=== PATIENT | male | born 1965 | race Caucasian/White ===

== ENCOUNTER 2016-06-24 06:09 | Inpatient (IN) ==
[2016-06-24] MEDS ORDERED: Albuterol 2.5 MG/3 ML NEBULIZER ONE (06:50)
[2016-06-24] MEDS ORDERED: *HR* Heparin 5,000 UNIT/ML VIAL ONE ×2 (06:52→10:50)
[2016-06-24] MEDS ORDERED: Heparin 1,000 UNITS/500 mL NS 500 ML ONE ×2 (06:52→06:55)
[2016-06-24] MEDS ORDERED: Ondansetron 4 MG/2 ML VIAL ONE (06:52)
[2016-06-24] MEDS ORDERED: *HR* Rocuronium Bromide 50 MG/5 ML VIAL ONE (06:52)
[2016-06-24] MEDS ORDERED: Lidocaine -MPF 2% 2 ML VIAL ONE ×2 (06:52→07:53)
[2016-06-24] MEDS ORDERED: *HR* Phenylephrine 10 MG/ML VIAL ONE (06:52)
[2016-06-24] MEDS ORDERED: *HR* FentaNYL (PF) 100 MCG/2 ML VIAL ONE (06:55)
[2016-06-24] MEDS ORDERED: *HR* Midazolam HCl 5 MG/5 ML VIAL IVP ONE (06:55)
[2016-06-24] MEDS ORDERED: *HR* Propofol 200 MG/20 ML VIAL IVP ONE (06:56)
[2016-06-24] MEDS ORDERED: CeFAZolin Pre 2,000 MG/100 ML 2,000 MG/100 ML BAG IVPB ONE (07:06)
--- NOTE | 2016-06-24 07:09 | Anesthesia Evaluation PreOp ---
Date of Encounter: 06/24/16 Time of Encounter: 07:07 - Past History Planned Operation: left fem-pop BPG Cardiac History: Denies any Significant Hx, Other (newly diagnosed PAD) Pulmonary History: Denies Any Significant HX, Smoker, Pack/yr (1 ppd x 30yrs) STOCK CLIPPER History: Denies Any Significant HX Other Medical History: Denies Any Significant HX Anesthesia History: No Prior Anesthetic Complications (no surgical history) Alcohol Use: occasionally Drug use: none Medications and Allergies Aspirin 81 mg PO DAILY #21 tab.chew 06/01/16 [Rx] Clopidogrel Bisulfate [Plavix] 75 mg PO DAILY #30 tablet 06/13/16 [Rx] HYDROcodone/Acet 5/325 mg [Morgan 5-325 mg] 1 tab PO Q6H PRN 06/13/16 [History] Allergies No Known Allergies Allergy (Verified 06/13/16 10:30) - Meds/Allergy Pre-op Review Medications Reviewed: Yes Allergies Reviewed: Yes Beta Blockers on Current Med List: No Anesthesia Results - Labs Laboratory Tests 06/01/16 06/01/16 17:21 17:21 Hgb 19.9 H Hct 56.6 H Plt Count 266 Sodium 137 Potassium 4.4 BUN 16 Creatinine 0.90 - Imaging EKG: report reviewed (sinus lawson) Chest x-ray: report reviewed (no active disease) Anesthesia Exam Selected Entries 06/24/16 06:24 Temperature 97.9 F Pulse Rate 82 Respiratory Rate 18 Blood Pressure 162/94 O2 Sat by Pulse Oximetry 99 Height: 1.75m Weight: 66.7kg NPO (# of Hours): 8 Pain Scale: 0 Pain Scale Used: Numeric (1 - 10) - HEENT Pupil (Motor): EOMI Mallampati: II Teeth: Normal Oral Opening: Greater than 3 - STOCK CLIPPER LOC: Oriented STOCK CLIPPER Motor: Normal RUE, Normal LUE, Normal RLE, Normal LLE, Normal Face STOCK CLIPPER Sensory: Normal: RUE, LUE, RLE, LLE, Face - Cardiac Rhythm: Regular Murmur: None - Pulmonary Breath Sounds: bilateral Clear Respiratory Effort: Symmetrical Anesthesia Assess/Plan ASA Score: 2 Modified [place] Scale for Level of Consciousness: Cooperative, oriented, and tranquil Anesthetic Plan: General Autologous Blood: No Monitoring Plan: Standard Monitors, A-Line Recovery Plan: PACU (Discussed risks of GA and a-line. Questions answered. Aware there is a possibility of need for blood products and ICU stay. Agrees to proceed.)
[2016-06-24] MEDS: Ringers Solution, Lactated 1,000 ML IVC SCH ×2 (07:16→09:44)
[2016-06-24] MEDS ORDERED: Heparin 1,000 UNITS/500 mL NS 1,000 ML ONE (07:18)
--- NOTE | 2016-06-24 07:26 | History & Physical Report ---
Date of Encounter: 06/24/16 Time of Encounter: 07:20 24 Hour HP Update - Instructions Instructions: If the History and Physical is less than 30 days old and was completed prior to A.M. admission and or procedure and has NOT been updated on calendar day of procedure please complete this update prior to performing procedure. - Update Patient reports changes in Medical Condition: No Changes in assessment/condition: No Changes in Medication: No Preop tests/diagnostics Reviewed: Yes Surgery Remains Indicated: Yes Consent for Planned Operative Procedure(s) Verified: Yes - Pre-Operative Checklist Preoperative Checklist Indicated: Yes Prophylactic Antibiotic Ordered: Yes Home Medications Include Beta Demond: No Beta Demond Taken Today (Day of Surgery): No Beta Demond Taken Yesterday (Day Prior to Surgery): No Is VTE Prophylaxis Indicated?: Yes
[2016-06-24] MEDS ORDERED: *HR* Metoprolol 5 MG/5 ML VIAL IVP ONE (08:32)
--- NOTE | 2016-06-24 09:57 | Anesthesia Procedures ---
Date of Encounter: 06/24/16 Time of Encounter: 08:00 Procedures: Anesthesia - Arterial Line Consent obtained: written consent Time out performed: Yes Sedation: Versed (mg): 3 Sedation: Fentanyl (mcg): 100 Supplemental Oxygen via Nasal Cannula (L/min): 2 Local Anesthetic: Lidocaine 1% Amount of Anesthetic used (mls): 1 Size (Gauge): 20 Length (inches): 1 3/4 Technique Used: sterile prep, guide wire technique, direct puncture technique Post-Procedure: line taped into place, dry sterile dressing placed Patient tolerated procedure: well, no complications Complications: none Site: Radial L (palced easily)
[2016-06-24] MEDS ORDERED: *HR* Morphine 10 MG/ML VIAL ONE (10:49)
--- NOTE | 2016-06-24 12:16 | Operative Note ---
Date of procedure: 06/24/16 Pre-op diagnosis: pad/claudication Post-op diagnosis: same Procedure: left femoral-AK popliteal bypass with reversed greater saphenous vein left AK popliteal endarterectomy with bovine pericardial patch angioplasty Complications: none Anesthesia: GETA Surgeon: Josemanuel Joseph Co-Surgeon: Ant Benavidez Estimated blood loss (cc): 200 Specimen: none Condition: stable Disposition: PACU Procedure in Detail: History Shivam Orozco is a 51-year-old white male was recently seen in the vascular surgery clinic for severe left lower extremity claudication and toe pain. He had an abnormal physical exam with no palpable popliteal or ankle pulses and diminished femoral pulses. He went on to have an angiogram last week which demonstrated bilateral iliac artery disease and a left superficial femoral artery JOURNEYMAN WELDER. The iliac lesions were able to be treated successfully with stent angioplasty. The left superficial femoral JOURNEYMAN WELDER was not able to be treated and he now comes to the operating room for vascular reconstruction. Procedure After informed consent was obtained patient was taken from the holding area to the operating room. General endotracheal anesthesia was established under arterial line pressure monitoring. The abdomen groin and left lower extremity was sterilely prepped and draped. A 2 team surgical approach was utilized for this procedure due to the nature of the disease as well as the goal to decrease intraoperative blood loss and anesthetic time. Also promoted the complex intraoperative decision-making. Incisions were made at the vxhau-zgi-nbsn popliteal artery and at the femoral level. Dissection was carried down to reveal his vessels. Common femoral artery was soft and had an excellent pulse. The above-knee popliteal and at the knee popliteal artery was diseased and there is no palpable pulse. The antrum had demonstrated reconstitution of the popliteal artery just above the knee joint. There was also an anatomic abnormality with a very high bifurcation of the popliteal artery into a posterior tibial branch and into a common anterior tibial peroneal artery branch. The goal was to perform the distal anastomosis proximal to this bifurcation so all 3 tibial vessels would receive pulsatile flow directly. After the arterial exposure was accomplished attention was directed to the greater saphenous vein. This was then dissected along the medial aspect of the thigh through interrupted incisions. The vein was found to be soft and usable and appropriate in caliber and quality. The vein was divided distally and gently irrigated. It distended to an appropriate size and it was completely harvested. A subsartorial tunnel was then created. Heparin was administered. The proximal anastomosis was performed first in end to side fashion. The vein was configured in a reverse configuration due to the size. 6- 0 Prolene suture was used for this end-to-side anastomosis to the common femoral artery. The vein was then checked and passed through the tunnel. The popliteal artery was opened. This vessel as expected demonstrated occlusion in its proximal portion. There was some retrograde flow distally. This was a very low bmhtq-jae-rgxm popliteal artery dissection as mentioned above. An endarterectomy was necessary. Using an elevator the occlusive plaque was lifted and a formal endarterectomy was performed of the inbjd-ild-opgu popliteal artery. This allowed for a normal base with which to work. Due to the length of the endarterectomy a bovine patch into plasty was necessary. This was sewn in position using 2 6-0 Prolene sutures. The with this done an arteriotomy was made over the patch. The vein was then fashioned in end to side figuration to the patch using 6-0 Prolene. After appropriate backbleeding and flushing the graft was opened and pulsatile flow was restored to the left calf. Excellent Doppler signals were identified at the posterior tibial and anterior tibial arteries at the dorsalis pedis level. The incisions were then irrigated and hemostasis achieved. Wounds were closed in layers using absorbable suture. Dry sterile dressings were applied. Estimated blood loss is 200 mL. The patient was extubated in the operating room and taken to the recovery room in stable condition. There were no intraoperative complications.
[2016-06-24] MEDS ORDERED: *HR* Labetalol 100 MG/20 ML MDV IVP PRN (12:25)
[2016-06-24] MEDS ORDERED: *HR* Promethazine 25 MG/ML VIAL IVP PRN (12:25)
[2016-06-24] MEDS ORDERED: *HR* Meperidine 25 MG/ML SYRINGE IVP PRN (12:25)
[2016-06-24] MEDS ORDERED: *HR* Morphine 2 MG/ML SYRINGE ONE (12:26)
[2016-06-24] MEDS: *HR* Morphine 2 MG/ML SYRINGE IVP PRN ×5 (12:29→13:00)
[2016-06-24] MEDS ORDERED: Ringers Solution, Lactated 1,000 ML IVC SCH (12:30)
[2016-06-24] MEDS ORDERED: Acetaminophen IV 1,000 MG/100 ML INFUS..BTL IVPB ONE (13:05)
[2016-06-24] MEDS ORDERED: *HR* HYDROmorphone (PF) 1 MG/ML SYRINGE IVP PRN (13:05)
[2016-06-24] MEDS ORDERED: *HR* HYDROmorphone (PF) 1 MG/ML SYRINGE ONE (13:09)
--- NOTE | 2016-06-24 13:23 | Anesthesia Evaluation Post Op ---
Date of Encounter: 06/24/16 Time of Encounter: 13:25 - Vital Signs Vital Signs: Vital Signs/O2 Sat/Glucose, Most Current Temp Pulse Resp BP Pulse Ox 06/24/16 13:19 97.7 F 80 18 140/71 97 06/24/16 13:09 83 18 139/72 98 06/24/16 12:59 85 18 138/71 97 06/24/16 12:49 97.7 F 84 18 132/70 96 06/24/16 12:39 96 18 144/75 96 06/24/16 12:29 98 18 154/85 95 06/24/16 12:19 98.4 F 100 18 164/113 97 - Lungs Lungs: Clear Ascult./Percussion - Airway Airway: Non-obstructed - Cardiovascular Regular Rate - Mental Status Mental Status: Alert & Oriented, Answers Appropriately - Pain Pain Scale: 1 - Nausea Vomiting Nausea Vomiting: Not Present - Hydration Hydration: NPO - Discharge PostOp Status: Transfer Patient to floor
[2016-06-24] MEDS ORDERED: *HR* Morphine 2 MG/ML SYRINGE IVP PRN ×2 (14:49)
[2016-06-24] MEDS ORDERED: Ondansetron 4 MG/2 ML VIAL IVP PRN (14:49)
[2016-06-24] MEDS ORDERED: *HR* Labetalol 20 MG/4 ML SYRINGE IVP PRN (14:49)
[2016-06-24] MEDS ORDERED: Naloxone 0.4 MG/ML INJ IVP PRN (14:49)
[2016-06-24] MEDS: *HR* HYDROcodone/Acet 5/325 mg TABLET PO PRN ×2 (15:43→23:59)
[2016-06-24] MEDS ORDERED: Nicotine 2 MG GUM BC PRN (16:31)
[2016-06-24] MEDS: Nicotine 14 MG PATCH.TD24 TD SCH (17:00)
[2016-06-24] MEDS: ceFAZolin 2,000 MG in D5% in Water 100 ML IVPB SCH (17:00)
[2016-06-24] MEDS: *HR* Metoprolol 5 MG/5 ML VIAL IVP SCH (17:00)
[2016-06-25 05:23] LABS: Basophils # 0.1 K/mcL (0.0-0.2); Basophils % 0.7 %; Eosinophils # 0.2 K/mcL (0.0-0.6); Eosinophils % 1.3 %; Hematocrit 36.6 % (37.5-50.1); Hemoglobin 12.8 g/dL (12.9-16.9); Immature Granulocytes % 0.4 % (0-4); Lymphocytes # 2.7 K/mcL (0.6-4.6); Lymphocytes % 21.5 %; Mean Corpuscular Hemoglobin 31.8 pg (28.0-33.3); Mean Corpuscular Volume 90.8 fL (83.0-100.0); Mean Platelet Volume 9.3 fL (9.4-12.4); Monocytes # 1.4 K/mcL (0.0-1.3); Monocytes % 10.9 %; Neutrophils # 8.3 K/mcL (1.6-8.9); Platelet Count 265 K/mcL (140-400); Red Blood Count 4.03 M/mcL (4.19-5.50); Segmented Neutrophils % 65.2 %
[2016-06-25] MEDS: *HR* HYDROcodone/Acet 5/325 mg TABLET PO PRN ×3 (05:41→16:58)
[2016-06-25 05:43] LABS: BUN/Creatinine Ratio 16 (6-26); Blood Urea Nitrogen 11 mg/dL (8-26); Calcium 8.2 mg/dL (8.6-10.8); Carbon Dioxide 24 mEq/L (19-29); Chloride 102 mEq/L (98-109); Glucose 106 mg/dL (70-99); Osmolality,Calculated 280 (280-300); Sodium 135 mEq/L (136-145); eGFR For African Americans > 60 (> 60); eGFR For Non-African Americans > 60 (> 60)
[2016-06-25] MEDS: *HR* Metoprolol 5 MG/5 ML VIAL IVP SCH ×3 (05:46→12:25)
--- NOTE | 2016-06-25 06:54 | Operative Note ---
Date of procedure: 06/25/16 Pre-op diagnosis: Peripheral vascular disease with disabling claudication Post-op diagnosis: same Procedure: 1. Left femoral to popliteal artery bypass with reversed left greater saphenous vein. 2. Left popliteal artery endartectomy with bovine pericardial patch angioplasty. Complications: None Anesthesia: GETA Surgeon: Ant Benavidez Co-Surgeon: Josemanuel Joseph Estimated blood loss (cc): 200 Specimen: None Condition: stable Disposition: PACU Procedure in Detail: Indications: The patient is a 51 year old male with a history of tobacco abuse who presented to clinic with disabling claudication. He was found to have significant peripheral vascular disease including a left superficial femoral artery occlusion with at the knee reconstitution. He was also found to have significant iliac disease. His iliac disease was treated with stents. However , his superficial femoral artery occlusion could not be crossed with a wire. Bypass was recommended for symptomatic relief. Procedure: The patient was identified in the preoperative area. The risks, benefits, and alternatives of the procedure were discussed. All questions were answered. The patient was taken to the operating room and placed in supine position on the operating room table. After the induction of general endotracheal anesthesia, he was cleaned and draped in normal sterile fashion. A two surgeon approach was utilized for this procedure in order to minimize anesthetic time and the risks for complications due to the patients comorbid conditions. In addition, a two surgeon approach was used for intraoperative decision making. An oblique incision was made over the left groin sharply. Hemostasis was obtained with electrocautery. Through a process of blunt, sharp, and electrocautery dissection, the left femoral vessels were dissected circumferentially and surrounded with vessel loops. A longitudinal incision was made on the left medial distal thigh sharply. Hemostasis was obtained with electrocautery. Through a process of blunt, sharp, and electrocautery dissection, the left above-knee popliteal artery was dissected proximally and distally and surrounded with vessel loops. The vessel was noted to be pulseless rigid due to the presence of calcified plaque Multiple skin incisions were made along the thigh between the two incisions along the saphenous vein. The saphenous vein was completely mobilized with blunt, sharp, and electrocautery dissection. The side branches were clamped, divided, tied off with 3-0 and 4-0 silk sutures. Distally, the vein was mobilized in the calf, clamped, divided, tied off with silk suture ligature and then further completely mobilized through the incisions. The vein was flushed and noted to be adequate in size and consistency for bypass. A tunnel was created between the femoral and popliteal artery incisions. The vein was reversed. Tension was applied to the femoral vessel loops. An arteriotomy was made in the common femoral artery and the vein graft was cut to fit the defect. The graft was anastamosed with a running 6-0 Prolene. After completing the closure, the vessels were reperfused and pulsatile flow was noted through the vein. The vein was marked without torsion and then it was tunneled between the two incisions. After tunneling, the vein was unclamped and was noted to have strong pulsatile flow once again. The atraumatic clamp was then reapplied to the vein. The popliteal vessels were occluded and a longitudinal arteriotomy was made in the popliteal artery. Significant partially occlusive calcified plaque was identified. The decision was made to perform an extensive endarterectomy in order to provide unobstructed outflow through the vein bypass graft. Using a freer, an long endarterectomy was then performed. The endpoint was inspected and no elevated flaps were noted. A bovine pericardial patch was then cut to fit the arterial defect and sutured in place with a running 6-0 Prolene. A longitudinal incision was then made in the patch. The distal end of the graft was cut to fit the incision and then sutured in place with a running 6-0 Prolene,. The distal arterial anastomosis was completed and prior to completing the closure, the popliteal vessels were flushed and reoccluded. Heparinized saline was infused into the lumen. The anastamosis was tied and then flow was restored. Polyphasic signals were noted distal to the distal anastomosis as well as at the posterior tibial artery. Wounds were irrigated with antibiotic-containing saline. Thrombin and gelfoam were used to aid in hemostasis. Meticulous hemostasis was obtained throughout the wound with electrocautery. Wounds were reapproximated with layers of 2-0 and 3-0 Vicryl. Skin was reapproximated with 4-0 Vicryl. Sterile dressings were applied. The patient was then extubated and taken to recovery room in stable condition.
[2016-06-25] MEDS: ceFAZolin 2,000 MG in D5% in Water 100 ML IVPB SCH ×2 (08:00)
[2016-06-25] MEDS: Nicotine 14 MG PATCH.TD24 TD SCH (08:18)
--- NOTE | 2016-06-25 08:37 | Discharge Summary ---
Date of Encounter: 06/25/16 Time of Encounter: 16:59 - Discharge Diagnosis (1) Tobacco abuse Priority: Secondary Status: Chronic Comments: Chronic tobacco use. Patient has been given counseling in regards to tobacco cessation. The patient has reduced his tobacco consumption since I saw him in the clinic but is not yet achieved 100% cessation. (2) PAD (peripheral artery disease) Priority: Primary Status: Acute Comments: Severe and lifestyle limiting left lower extremity claudication and left toe pain. The patient had an angiogram last week which demonstrated bilateral iliac artery disease that was treated successfully with stent angioplasty. He also had a chronic total occlusion of the left superficial femoral artery. Attempts at endovascular treatment were unsuccessful and the comes to the hospital for direct surgical reconstruction. A left femoral to oiavq-vzk-usrr popliteal artery bypass graft was constructed with reverse greater saphenous vein. Also the above-knee popliteal artery required an endarterectomy and a bovine pericardial patch angioplasty in order to facilitate and achieved maximum arterial runoff. The patient does have an anatomic variation at the left popliteal. The patient has a high takeoff of the posterior tibial artery. The common trunk leads to the anterior tibial and peroneal artery which then bifurcated in the traditional manner. - Discharge Medications Prescriptions: HYDROcodone/Acet 5/325 mg [[place] 5-325 mg] 1 tab PO Q6H PRN #14 tablet PRN Reason: Moderate Pain Nicotine Patch [Nicoderm] 14 mg TD DAILY #30 patch.td24 Home Medications: Aspirin 81 mg PO DAILY #21 tab.chew 06/01/16 [Rx] Clopidogrel Bisulfate [Plavix] 75 mg PO DAILY #30 tablet 06/13/16 [Rx] HYDROcodone/Acet 5/325 mg [[place] 5-325 mg] 1 tab PO Q6H PRN #14 tablet 06/25/16 [Rx] Nicotine Patch [Nicoderm] 14 mg TD DAILY #30 patch.td24 06/25/16 [Rx] Allergies/Adverse Reactions: Allergies No Known Allergies Allergy (Verified 06/24/16 07:22) Date of admission: 06/24/16 13:59 Primary care physician: Monico Mejia, Consults: None Procedure(s) Performed: Left femoral-popliteal bypass graft with reversed greater saphenous vein and left popliteal artery endarterectomy with bovine pericardial patch angioplasty Discharging clinician: Josemanuel Joseph Anticipated date of discharge: 06/25/16 - Patient Status Disposition: Home, Self-Care Condition: Good Functional capacity at discharge: independent ambulation Overall status at discharge: patient is progressing back to baseline - Discharge Instructions Follow Up With: Monico Mejia DO [Primary Care Provider] - Additional Instructions: Follow-up with Dr. Joseph in 2 weeks Keep left thigh incisions dry for total of 5 days following surgery Remove dressing from left thigh on Thursday No lifting greater than 10 pounds. No automobile driving. Patient is to walk a minimum of 20 minutes twice a day. Patient is to keep left lower extremity elevated while sitting. - Diet and Activity Activity: increase activity as tolerated Diet: low fat, low cholesterol - Hospital Course Hospital course: Mr. Orozco is a 51 year old male Severe left lower extremity claudication and toe pain. He was taken to the operating room yesterday and underwent a left femoral to lpkgv-huq-smth popliteal artery bypass graft with reverse greater saphenous vein. Patient also had a popliteal artery endarterectomy and bovine pericardial patch angioplasty. The patient had an uneventful operation and tolerated the general anesthesia well. Postoperatively he had a excellent response with return of a palpable pulse at the posterior tibial artery at the ankle and a warm pink left foot. The patient was then ambulated on postoperative day #1. He was felt fit for discharge later that same day. Instructions in regards to diet and exercise and medications were reviewed with the patient. - Time Spent with Patient Total time spent providing and/or coordinating discharge services: Exam Vital Signs, Last 4 Hours Temp Pulse Resp BP Pulse Ox 06/25/16 07:15 98.5 F 69 16 146/84 96 06/25/16 04:45 67 14 96 General: Present: Conversant, No Apparent Distress HEENT: Present: Atraumatic, Normocephaly Neck: Absent: JVD Cardiac: Present: Reg Rate and Rhythm Neuro: Present: Alert and responsive, No focal deficits noted Abdomen: Present: Soft, Non-tender Vascular: Present: Normal capillary refill, Pulse, normal, Surgical incisions ( Left thigh incisions are clean and dry) Skin: Present: No rashes noted on visualized skin - VTE Documentation of Mechanical Device: Intermittent pneumatic compression device
[2016-06-25] MEDS ORDERED: Aspirin 81 MG TAB.CHEW PO SCH (09:00)
[2016-06-25 11:51] VITALS: BP 117/86
== END 2016-06-25 17:45 | disposition home or self-care (01) | DRG 181 ==
LOC: SAMDAY 06:09 → 2NNU 13:59
PROVIDERS: ADMIT Surgery Vascular Surgery; ATTEND Surgery Vascular Surgery